=== PATIENT | male | born 1985 | race Hispanic/Latino ===

== ENCOUNTER 2017-03-06 14:25 | Inpatient (IN) | payer BC ==
[2017-03-06 15:08] LABS: BASO # 0.1 K/uL (0.0-0.2); BASO % 0.5 % (0.0-2.0); EOS # 0.2 K/uL (0.0-0.7); EOS % 1.7 % (0.0-4.0); HEMATOCRIT 44.6 % (35.0-51.0); LYMPH # 1.9 K/uL (1.0-4.3); LYMPH % 18.5 % (20.0-40.0); MEAN CORPUSCULAR HGB CONC 33.7 g/dL (33.0-37.0); MEAN PLATELET VOLUME 6.6 fl (7.2-11.7); MONO # 0.7 K/uL (0.0-0.8); MONO % 7.1 % (0.0-10.0); NEUT # 7.3 K/uL (1.8-7.0); NEUT % 72.2 % (50.0-75.0); RED CELL DISTRIBUTION WIDTH 13.4 % (11.5-14.5); WHITE BLOOD COUNT 10.1 K/uL (4.8-10.8)
--- NOTE | 2017-03-06 15:15 | ED PDOC ---
HPI: Chest Pain Time Seen by Provider: 03/06/17 14:43 Chief Complaint (Nursing): Chest Pain Chief Complaint (Provider): chest discomfort, SOB, right leg pain History Per: Patient History/Exam Limitations: no limitations Onset/Duration Of Symptoms: Sudden Onset Current Symptoms Are (Timing): Still Present Severity: Moderate Quality: Tightness Associated Symptoms: Dyspnea, Other (hemoptysis/ leg pain) Exacerbating Factors: Deep Breathing, Exertion Additional Complaint(s): 31yo male states has had right leg pain for about 2 weeks, this morning developed right lower chest discomfort associated with resting dyspnea and several episodes of mild hemoptysis. Denies syncope, fever, orthopnea or left leg pain. 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 He denies recent surgery, immobilization, long plane/car rides or smoking history. Denies family history of blood clots. Past Medical History Reviewed: Historical Data, Nursing Documentation, Vital Signs Vital Signs: Last Vital Signs Temp 97.6 F 03/06/17 14:31 Pulse 84 03/06/17 18:42 Resp 18 03/06/17 14:31 BP 127/78 03/06/17 14:31 Pulse Ox 98 03/06/17 18:42 - Medical History PMH: No Chronic Diseases - Surgical History Surgical History: No Surg Hx - Family History Family History: States: Other Other Family History: denies fam hx blood clots - Social History Current smoker - smoking cessation education provided: No Drugs: Denies - Home Medications Home Medications: Ambulatory Orders Medication Instructions Recorded No Known Home Med 03/06/17 - Allergies Allergies/Adverse Reactions: Allergies Allergy/AdvReac Type Severity Reaction Status Date / Time No Known Allergies Allergy Verified 03/06/17 14:49 Review of Systems Constitutional: Negative for: Fever, Chills ENT: Negative for: Nose Discharge, Throat Pain, Throat Swelling Cardiovascular: Positive for: Chest Pain. Negative for: Palpitations, Orthopnea , Edema Respiratory: Positive for: Shortness of Breath, Hemoptysis, Pleuritic Pain. Negative for: Wheezing Gastrointestinal: Negative for: Nausea, Vomiting, Abdominal Pain Genitourinary Male: Negative for: Dysuria Musculoskeletal: Positive for: Leg Pain. Negative for: Neck Pain, Shoulder Pain , Back Pain Skin: Negative for: Rash, Lesions, Jaundice Neurological: Negative for: Weakness, Numbness, Headache, Dizziness Psych: Negative for: Anxiety, Depression Physical Exam - Reviewed Nursing Documentation Reviewed: Yes Vital Signs Reviewed: Yes - Physical Exam Appears: Positive for: Well, Non-toxic, No Acute Distress Head Exam: Positive for: ATRAUMATIC, NORMAL INSPECTION, NORMOCEPHALIC Skin: Positive for: Normal Color, Warm, DRY Eye Exam: Positive for: EOMI, Normal appearance, PERRL ENT: Positive for: Normal ENT Inspection Neck: Positive for: Normal, Painless ROM Cardiovascular/Chest: Positive for: Regular Rate, Rhythm Respiratory: Positive for: CNT, Normal Breath Sounds Gastrointestinal/Abdominal: Positive for: Normal Exam, Bowel Sounds, Soft Back: Positive for: Normal Inspection Extremity: Positive for: Normal ROM, Calf Tenderness (Right), Swelling (trace right calf). Negative for: Deformity Neurologic/Psych: Positive for: Alert, Oriented - Laboratory Results Result Diagrams: 03/06/17 15:02 03/06/17 15:02 - ECG ECG: Positive for: Interpreted By Me ECG Rhythm: Positive for: Normal QRS, Nonspecific Changes Rate: 84 O2 Sat by Pulse Oximetry: 98 Pulse Ox Interpretation: Normal - Physician Consult Information Time Consulting Physican Contacted: 17:00 Physician Contacted: [place] Portillo Outcome Of Conversation: icu care - Critical Care Total Time (In Min): 45 Medical Decision Making Medical Decision Making: Workup initiated for r/o thromboembolism given chest discomfort, small hemoptysis, SOB and RLE pain. labs reviewed, Hgb, Plt normal LFTs and chem unremarkable trop neg BNP within normal range Stat CTA and duplex lower ext obtained: Accession No. : [id number] Patient Name / ID : SAY HYLTON / [id number] Exam Date : 03/06/2017 16:19:35 ( Approved ) Study Comment : Sex / Age : M / 31Y Creator : Deandre Womack MD Dictator : Deandre Womack MD Bus Starter : Nipple Machine Operator : Deandre Womack MD Approver2 : Report Date : 03/06/2017 17:04:54 My Comment : This report is currently processing and HAS NOT BEEN OFFICIALLY SIGNED BY THE PHYSICIAN - ESTIMATED TIME OF APPROVAL IS 03/06/2017 17:09. PROCEDURE: CT Chest with contrast (Pulmonary Angiogram) HISTORY: chest pain, SOB, hemoptysis, RLE pain COMPARISON: None available. TECHNIQUE: Axial computed tomography images were obtained of the chest in the pulmonary arterial phase of enhancement. Coronal and sagittal reformatted images were created and reviewed. Intravenous contrast dose: 98 cc of Visipaque 320 contrast material Radiation dose: Total exam DLP = 366.35 mGy-cm. This CT exam was performed using one or more of the following dose reduction techniques: Automated exposure control, adjustment of the mA and/or kV according to patient size, and/or use of iterative reconstruction technique. FINDINGS: PULMONARY ARTERIES: Current study reveals of pulmonary emboli within distal aspect right upper lobe pulmonary artery as well as distal margins of both right and left lower lobe branches and proximal segmental branches. The note that these findings discussed with Dr. Mccarty at approximately 4:50 p.m. with written down and read back verification. The pulmonary trunk measures approximately 2.6 cm. AORTA: Ascending thoracic aorta measures approximately 2.56 cm and descending thoracic aorta measures approximately 2.13 cm. Note made of a filling defect within the SVC which may represent head mixing of unopacified blood. Possibility of clot within the SVC cannot be completely excluded. . LUNGS: There is a vague patchy infiltrate in the right posterior sulcus that could represent pulmonary infarct. Remaining lung johnson are clear. PLEURAL SPACES: No effusion. No evidence of pneumothorax HEART: Heart size is within range of normal. No significant pericardial effusion. . No definitive evidence of right heart strain this time. Minimal LVH. LYMPH NODES: No significant mediastinal or hilar lymphadenopathy BONES, CHEST WALL: Unremarkable. No fracture or destructive lesion OTHER FINDINGS: Unremarkable. IMPRESSION: Findings consistent with bilateral lower lobe and right upper lobe pulmonary emboli. Probable pulmonary infarct right posterior sulcus. Findings discussed with referring emergency room physician as above. Note made of localized area of diminished contrast material within the IVC which could represent a admixed unopacified blood however the possibility of a clot within the SVC not excluded Accession No. : [id number] Patient Name / ID : SAY HYLTON P / [id number] Exam Date : 03/06/2017 15:32:46 ( Approved ) Study Comment : Sex / Age : M / 31Y Creator : Deandre Womack MD Dictator : Deandre Womack MD Bus Starter : Nipple Machine Operator : Deandre Womack MD Approver2 : Report Date : 03/06/2017 16:17:26 My Comment : HISTORY: Right lower extremity pain, swelling w chest pain/SOB COMPARISON: No prior TECHNIQUE: Bilateral common femoral, superficial femoral, popliteal and posterior tibial veins were evaluated. Flow was assessed with color Doppler, compressibility, assessment of phasic flow and augmentation response. . FINDINGS: The current study reveals thrombus within the right mid and distal superficial femoral vein extending inferiorly into the popliteal and posterior tibial veins. The right common femoral vein and proximal superficial femoral vein as well as the deep veins left lower extremity are patent without evidence of DVT. IMPRESSION: DVT within the right mid and distal superficial femoral vein extending inferiorly into the popliteal and posterior tibial veins. These findings were discussed with Dr. Mccarty at approximately 04:13 p.m. with written down and read back verification. Deep veins left lower extremity patent without evidence of DVT. Heparin initiated. Discussed w radiologist Dr Sutherland, RV appears normal, given lack of tachycardia , lack of hypoxia, normal BP and neg BNP, neg troponin, patient is not candidate for acute TPA or interventional therapy and risks outweigh benefits. Will need echo, admit ICU. Discussed w Dr Portillo intensive care approx 5pm, discussed w Lauren Landis DISTRICT BRANCH MANAGER covering Dr Juana Driver as PMD is [facility]. Care transferred. Questions answered and patient updated on all findings. Offered 630pm- re-evaluated, states SOB and chest pain improved, will continue with ICU care given bilateral PEs with clot burden remaining in RLE and pulmonary infarct. Disposition - Clinical Impression Clinical Impression: Bilateral pulmonary embolism, DVT (deep venous thrombosis) - Patient ED Disposition Is Patient to be Admitted: Yes Counseled Patient/Family Regarding: Studies Performed, Diagnosis - Disposition Disposition Time: 16:45 Condition: GUARDED - Pt Status Changed To: Hospital Disposition Of: Inpatient - Admit Certification Admit to Inpatient:: After my assessment, the patient will require hospitalization for at least two midnights. This is because of the severity of symptoms shown, intensity of services needed, and/or the medical risk in this patient being treated as an outpatient. - POA Present On Arrival: None
[2017-03-06 15:19] LABS: PARTIAL THROMBOPLASTIN TIME 28.2 Seconds (25.6-37.1)
[2017-03-06 15:20] LABS: ALB/GLOB RATIO 1.6 (1.0-2.1); ALKALINE PHOSPHATASE 47 U/L (38-126); ALT/SGPT 31 U/L (21-72); AST/SGOT 24 U/L (17-59); BILIRUBIN,TOTAL 1.1 mg/dl (0.2-1.3); BLOOD UREA NITROGEN 6 mg/dl (9-20); CARBON DIOXIDE 25 mmol/L (22-30); CHLORIDE 107 mmol/L (98-107); GFR AFRICAN-AMERICAN > 60; GLUCOSE,RANDOM 95 mg/dL (75-110); POTASSIUM 4.5 MMOL/L (3.6-5.0); SODIUM 142 mmol/l (132-148); TOTAL PROTEIN 6.6 G/DL (6.3-8.2)
[2017-03-06] MEDS ORDERED: Iodixanol 320 MG/ML 100 ML BOTTLE IV ONE (15:34)
[2017-03-06] MEDS ORDERED: Sodium Chloride 0.9% 50 ML IV ONE ×2 (15:35→15:37)
--- NOTE | 2017-03-06 16:19 | US ---
HISTORY: Right lower extremity pain, swelling w chest pain/SOB COMPARISON: No prior TECHNIQUE: Bilateral common femoral, superficial femoral, popliteal and posterior tibial veins were evaluated. Flow was assessed with color Doppler, compressibility, assessment of phasic flow and augmentation response. . FINDINGS: The current study reveals thrombus within the right mid and distal superficial femoral vein extending inferiorly into the popliteal and posterior tibial veins. The right common femoral vein and proximal superficial femoral vein as well as the deep veins left lower extremity are patent without evidence of DVT. IMPRESSION: DVT within the right mid and distal superficial femoral vein extending inferiorly into the popliteal and posterior tibial veins. These findings were discussed with Dr. Mccarty at approximately 04:13 p.m. with written down and read back verification. Deep veins left lower extremity patent without evidence of DVT.
[2017-03-06] MEDS ORDERED: Heparin 25,000units in D5W 25,000 UNITS/250 ML BAG IV SCH ×2 (16:30→16:45)
[2017-03-06] MEDS ORDERED: Heparin25000 units/250ml 1/2NS 25,000 UNITS/250 ML BAG IV ONE (16:39)
--- NOTE | 2017-03-06 17:06 | CT ---
PROCEDURE: CT Chest with contrast (Pulmonary Angiogram) HISTORY: chest pain, SOB, hemoptysis, RLE pain COMPARISON: None available. TECHNIQUE: Axial computed tomography images were obtained of the chest in the pulmonary arterial phase of enhancement. Coronal and sagittal reformatted images were created and reviewed. Intravenous contrast dose: 98 cc of Visipaque 320 contrast material Radiation dose: Total exam DLP = 366.35 mGy-cm. This CT exam was performed using one or more of the following dose reduction techniques: Automated exposure control, adjustment of the mA and/or kV according to patient size, and/or use of iterative reconstruction technique. FINDINGS: PULMONARY ARTERIES: Current study reveals of pulmonary emboli within distal aspect right upper lobe pulmonary artery as well as distal margins of both right and left lower lobe branches and proximal segmental branches. The note that these findings discussed with Dr. Mccarty at approximately 4:50 p.m. with written down and read back verification. The pulmonary trunk measures approximately 2.6 cm. AORTA: Ascending thoracic aorta measures approximately 2.56 cm and descending thoracic aorta measures approximately 2.13 cm. Note made of a filling defect within the SVC which may represent head mixing of unopacified blood. Possibility of clot within the SVC cannot be completely excluded. . LUNGS: There is a vague patchy infiltrate in the right posterior sulcus that could represent pulmonary infarct. Remaining lung johnson are clear. PLEURAL SPACES: No effusion. No evidence of pneumothorax HEART: Heart size is within range of normal. No significant pericardial effusion. . No definitive evidence of right heart strain this time. Minimal LVH. LYMPH NODES: No significant mediastinal or hilar lymphadenopathy BONES, CHEST WALL: Unremarkable. No fracture or destructive lesion OTHER FINDINGS: Unremarkable. IMPRESSION: Findings consistent with bilateral lower lobe and right upper lobe pulmonary emboli. Probable pulmonary infarct right posterior sulcus. Findings discussed with referring emergency room physician as above. Note made of localized area of diminished contrast material within the IVC which could represent a admixed unopacified blood however the possibility of a clot within the SVC not excluded
[2017-03-06] MEDS: Heparin 25,000units in D5W 25,000 UNITS/250 ML BAG IV SCH (17:34)
--- NOTE | 2017-03-06 19:57 | CP.CCUPN ---
CCU Subjective - Physician Review Subjective (Free Text): Consultation for admission to ICU for Acute/SubAcute PTE and DVT: Events discussed with ER MD: 31M with no significant PMH , c/o RLE pain x 2 weeks, possible blood clot suspected but never had evaluation performed. Today, developed acute onset at rest with symptoms of chest tightness, SOB and multiple episodes of hemoptysis. He denies any palpitations, dizziness, diaphoresis, radiation of pain, N/V, abdominal discomfort, fevers, chills, cough , no recent URI symptoms, or illness. He denies any recent sedentary activities nor prolonged immobilization. Initial VS= 97.6F, 127/78. 73, 18, 98 % on RA. ROS: As above, no other pertinent negs or positives on 10+ system review. Other PMSFH: non-smoker, social ETOH use. All recent nursing and physician documentation reviewed and no new information noted relevant to current problems. MAJOR IMPRESSIONS: 1. Acute Resp insufficiency 2 Acute / Subacute PTE 2. RLE DVT (unprovoked) PLAN: 1. CT Chest preliminary report reviewed showing bilateral pulm embolus with possible wedge infarct along RLL. Other segmental branches involve RUL, RLL and LLL. IV Heparin bolus and infusion started in the ER. 2. Initial Trop is negative. ECHO pending. 3. So far, no indication for acute thrombolytic therapy or clot extraction. 4. Would investigate for occult CA, hypercoag state. 5. RLE US findings suggestive of somewhat extensive clot along mid SFV to Pop and Post Tib area. Consider Vascular Surgery eval. CCU Objective - Vital Signs / Intake & Output Vital Signs (Last 4 hours): Vital Signs Pulse Pulse Ox 03/06/17 18:59 84 98 - Physical Exam Head: Positive for: Normocephalic Pupils: Positive for: PERRL Extroacular Muscles: Positive for: EOMI Mouth: Positive for: Moist Mucous Membranes Neck: Negative for: JVD, Lymphadenopathy Respiratory/Chest: Positive for: Clear to Auscultation. Negative for: Accessory Muscle Use, Wheezes, Rhonchi Cardiovascular: Positive for: Regular Rate and Rhythm. Negative for: Murmurs, Rub Abdomen: Negative for: Tenderness, Distention, Normal Bowel Sounds Lower Extremity: Positive for: CALF TENDERNESS (RLE), NORMAL PULSES. Negative for: Cyanosis Neurological: Positive for: GCS=15, CN II-XII Intact, Motor Func Grossly Intact Skin: Positive for: Warm. Negative for: Rashes Psychiatric: Positive for: Alert, Oriented x 3 - Medications Active Medications: Active Medications Generic Name Dose Route Start Last Admin Trade Name Freq PRN Reason Stop Dose Admin Heparin Sodium/Dextrose 25,000 units in 250 mls @ 14 mls/hr 03/06/17 17:15 17:34 Heparin 25,000 Units/250ml In D5w IV 14 mls/hr .[id number] YANIRA Administration Protocol Review of Systems - Review of Systems All systems: reviewed and no additional remarkable complaints except (as above)
[2017-03-06 20:14] LABS: RBC URINE 2 /hpf (0-3); URINE BILIRUBIN NEGATIVE (NEGATIVE); URINE BLOOD NEGATIVE (NEGATIVE); URINE COLOR YELLOW (YELLOW); URINE GLUCOSE (UA) NEG (Normal); URINE KETONE TRACE mg/dL (NEGATIVE); URINE LEUKOCYTE ESTERASE NEG Leu/uL (Negative); URINE PROTEIN NEGATIVE (NEGATIVE); URINE UROBILINOGEN 0.2-1.0 mg/dL (0.2-1.0); WBC URINE < 1 /hpf (0-5)
[2017-03-07 06:00] LABS: MEAN CELL VOLUME 94.9 fl (80.0-94.0); MEAN CORPUSCULAR HEMOGLOBIN 32.2 pg (27.0-31.0); RED CELL DISTRIBUTION WIDTH 13.3 % (11.5-14.5); WHITE BLOOD COUNT 9.4 K/uL (4.8-10.8)
[2017-03-07 06:11] LABS: PARTIAL THROMBOPLASTIN TIME 54.4 Seconds (25.6-37.1)
[2017-03-07 06:35] LABS: BLOOD UREA NITROGEN 8 mg/dl (9-20); CALCIUM 9.3 mg/dL (8.4-10.2); CARBON DIOXIDE 22 mmol/L (22-30); CHLORIDE 103 mmol/L (98-107); GFR AFRICAN-AMERICAN > 60; GLUCOSE,RANDOM 97 mg/dL (75-110); POTASSIUM 3.7 MMOL/L (3.6-5.0); SODIUM 138 mmol/l (132-148)
--- NOTE | 2017-03-07 07:15 | CARD ---
APPROVED REPORT EKG Measurement Heart [id number] <Conclusion> Normal sinus rhythm with sinus arrhythmia Normal ECG
--- NOTE | 2017-03-07 08:02 | CP.PCM.HP ---
History of Present Illness - History of Present Illness History of Present Illness: pt admitted for b/l pe and rle dvt. at presentw/o dyspnea/pain. no f/c, n/v/d. bw noted. on heparin gtt in icu. 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 us but did not denies truama, surgery, travel, smoking Present on Admission - Present on Admission Any Indicators Present on Admission: No Review of Systems - Respiratory Respiratory: As Per HPI, Dyspnea on Exertion - Musculoskeletal Musculoskeletal: As Per HPI, Myalgias Past Patient History - Past Medical History & Family History Past Medical History?: Yes - Past Social History Smoking Status: Current Some Days Smoker - CARDIAC Hx Cardiac Disorders: No - PULMONARY Hx Respiratory Disorders: No - NEUROLOGICAL Hx Neurological Disorder: No - HEENT Hx HEENT Problems: No - RENAL Hx Chronic Kidney Disease: No - ENDOCRINE/METABOLIC Hx Endocrine Disorders: No - HEMATOLOGICAL/ONCOLOGICAL Hx Blood Disorders: No - INTEGUMENTARY Hx Dermatological Problems: No - MUSCULOSKELETAL/RHEUMATOLOGICAL Hx Falls: No - GENITOURINARY/GYNECOLOGICAL Hx Genitourinary Disorders: No - PSYCHIATRIC Hx Substance Use: No (DENIES) - SURGICAL HISTORY Hx Surgeries: No Other/Comment: UMBILICAL HERNIA REPAIR - ANESTHESIA Hx Anesthesia: Yes Hx Anesthesia Reactions: No Meds Allergies/Adverse Reactions: Allergies Allergy/AdvReac Type Severity Reaction Status Date / Time No Known Allergies Allergy Verified 03/06/17 14:49 Physical Exam - Constitutional Appears: Well, Non-toxic, No Acute Distress - Head Exam Head Exam: ATRAUMATIC, NORMAL INSPECTION, NORMOCEPHALIC - Eye Exam Eye Exam: EOMI, Normal appearance, PERRL Pupil Exam: NORMAL ACCOMODATION, PERRL - ENT Exam ENT Exam: Mucous Membranes Moist, Normal Exam - Neck Exam Neck exam: Positive for: Normal Inspection - Respiratory Exam Respiratory Exam: Clear to Auscultation Bilateral, NORMAL BREATHING PATTERN - Cardiovascular Exam Cardiovascular Exam: REGULAR RHYTHM, RRR, +S1, +S2 - GI/Abdominal Exam GI & Abdominal Exam: Normal Bowel Sounds, Soft. absent: Tenderness - Extremities Exam Extremities exam: Positive for: full ROM, normal capillary refill, normal inspection, pedal pulses present - Back Exam Back exam: NORMAL INSPECTION - Neurological Exam Neurological exam: Alert, CN II-XII Intact, Normal Gait, Oriented x3, Reflexes Normal - Psychiatric Exam Psychiatric exam: Normal Affect, Normal Mood - Skin Skin Exam: Dry, Intact, Normal Color, Warm Results - Vital Signs Recent Vital Signs: Last Vital Signs Temp 98.7 F 03/07/17 04:00 Pulse 59 L 03/07/17 06:00 Resp 21 03/07/17 06:00 BP 139/83 03/07/17 06:00 Pulse Ox 97 03/07/17 06:00 - Labs Result Diagrams: 03/07/17 04:20 03/07/17 04:20 Labs: Laboratory Results - last 24 hr 03/06/17 03/06/17 03/06/17 20:00 20:00 21:30 WBC RBC Hgb Hct MCV MCH MCHC RDW Plt Count PT INR APTT 90.2 H D Sodium Potassium Chloride Carbon Dioxide Anion Gap BUN Creatinine Est GFR ( Amer) Est GFR (Non-Af Amer) Random Glucose Calcium Urine Color Yellow Urine Clarity Clear Urine pH 6.0 Ur Specific Prospect 1.046 H Urine Protein Negative Urine Glucose (UA) Neg Urine Ketones Trace Urine Blood Negative Urine Nitrate Negative Urine Bilirubin Negative Urine Urobilinogen 0.2-1.0 Ur Leukocyte Esterase Neg Urine RBC (Auto) 2 Urine Microscopic WBC < 1 Ur Squamous Epith Cells < 1 Urine Opiates Screen Negative Urine Methadone Screen Negative Ur Barbiturates Screen Negative Ur Phencyclidine Scrn Negative Ur Amphetamines Screen Negative U Benzodiazepines Scrn Negative U Oth Cocaine Metabols Negative U Cannabinoids Screen Positive H 03/07/17 03/07/17 03/07/17 04:20 04:20 04:20 WBC 9.4 RBC 4.95 Hgb 16.0 Hct 47.0 MCV 94.9 H MCH 32.2 H MCHC 34.0 RDW 13.3 Plt Count 223 PT 11.1 INR 1.1 APTT 54.4 H D Sodium 138 Potassium 3.7 Chloride 103 Carbon Dioxide 22 Anion Gap 16 BUN 8 L Creatinine 0.7 L Est GFR ( Amer) > 60 Est GFR (Non-Af Amer) > 60 Random Glucose 97 Calcium 9.3 Urine Color Urine Clarity Urine pH Ur Specific Prospect Urine Protein Urine Glucose (UA) Urine Ketones Urine Blood Urine Nitrate Urine Bilirubin Urine Urobilinogen Ur Leukocyte Esterase Urine RBC (Auto) Urine Microscopic WBC Ur Squamous Epith Cells Urine Opiates Screen Urine Methadone Screen Ur Barbiturates Screen Ur Phencyclidine Scrn Ur Amphetamines Screen U Benzodiazepines Scrn U Oth Cocaine Metabols U Cannabinoids Screen Assessment & Plan (1) Bilateral pulmonary embolism Assessment and Plan: heparin gtt pulm/hematology icu admission Status: Acute (2) DVT (deep venous thrombosis) Assessment and Plan: hematology Status: Acute Decision To Admit - Pt Status Changed To: Hospital Disposition Of: Inpatient - Admit Certification Admit to Inpatient:: After my assessment, the patient will require hospitalization for at least two midnights. This is because of the severity of symptoms shown, intensity of services needed, and/or the medical risk in this patient being treated as an outpatient. - . Bed Request Type: Intensive Care Admitting Physician: Moi Driver
--- NOTE | 2017-03-07 09:51 | CP.PCM.CON ---
History of Present Illness - History of Present Illness History of Present Illness: 31 year old male with no past medical history admitted with right lower extremity DVT and bilateral PE. The patient reports to cramping of his right leg intermittently for about 2 week time. 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 He then began to experience episodes of hemoptysis and shortness of breath which prompted him to come to the ER. A Venous duplex revealed distol femoral, popliteal, and posterior tibial thrombus. A CT angio of the chest revealed B/L pulmonary emboli with probable pulmonary infarct. The patient is currently on a heparin drip and reports to feeling better. He denies immobility, trauma to his extremities, and hormonal supplementation. Past medical history: None Past surgical history: None Family history: Grandmother had a blood clot after her gallbladder was removed Social history: Chews tobacco, social alcohol, denies illicit drug use. Allergies: NKA Review of systems: All remaining review of systems including HEENT, cardiovascular, respiratory, gastrointestinal, genitourinary, musculoskeletal, dermatologic, neurologic, and psychiatric are negative unless mentioned in the HPI. Past Patient History - Past Medical History & Family History Past Medical History?: Yes - Past Social History Smoking Status: Current Some Days Smoker - CARDIAC Hx Cardiac Disorders: No - PULMONARY Hx Respiratory Disorders: No - NEUROLOGICAL Hx Neurological Disorder: No - HEENT Hx HEENT Problems: No - RENAL Hx Chronic Kidney Disease: No - ENDOCRINE/METABOLIC Hx Endocrine Disorders: No - HEMATOLOGICAL/ONCOLOGICAL Hx Blood Disorders: No - INTEGUMENTARY Hx Dermatological Problems: No - MUSCULOSKELETAL/RHEUMATOLOGICAL Hx Falls: No - GENITOURINARY/GYNECOLOGICAL Hx Genitourinary Disorders: No - PSYCHIATRIC Hx Substance Use: No (DENIES) - SURGICAL HISTORY Hx Surgeries: No Other/Comment: UMBILICAL HERNIA REPAIR - ANESTHESIA Hx Anesthesia: Yes Hx Anesthesia Reactions: No Meds Allergies/Adverse Reactions: Allergies Allergy/AdvReac Type Severity Reaction Status Date / Time No Known Allergies Allergy Verified 03/06/17 14:49 - Medications Medications: Current Medications Heparin Sodium/Dextrose (Heparin 25,000 Units/250ml In D5w) 25,000 units in 250 mls @ 14 mls/hr IV .[id number] YANIRA PRN Reason: Protocol Last Titration: 03/06/17 22:00 Dose: 12.5 mls/hr Physical Exam - Head Exam Head Exam: ATRAUMATIC - Eye Exam Eye Exam: Normal appearance - ENT Exam ENT Exam: Mucous Membranes Dry - Respiratory Exam Respiratory Exam: NORMAL BREATHING PATTERN - Cardiovascular Exam Cardiovascular Exam: +S1, +S2 - GI/Abdominal Exam GI & Abdominal Exam: Normal Bowel Sounds - Extremities Exam Extremities exam: Positive for: pedal edema - Neurological Exam Neurological exam: Oriented x3 - Psychiatric Exam Psychiatric exam: Normal Affect, Normal Mood - Skin Skin Exam: Warm Results - Vital Signs Recent Vital Signs: Last Vital Signs Temp 98.4 F 03/07/17 08:00 Pulse 58 L 03/07/17 08:00 Resp 23 03/07/17 08:00 BP 130/73 03/07/17 08:00 Pulse Ox 100 03/07/17 08:00 - Labs Result Diagrams: 03/07/17 04:20 03/07/17 04:20 Labs: Laboratory Results - last 24 hr 03/06/17 03/06/17 03/06/17 20:00 20:00 21:30 WBC RBC Hgb Hct MCV MCH MCHC RDW Plt Count PT INR APTT 90.2 H D Sodium Potassium Chloride Carbon Dioxide Anion Gap BUN Creatinine Est GFR ( Amer) Est GFR (Non-Af Amer) Random Glucose Calcium Urine Color Yellow Urine Clarity Clear Urine pH 6.0 Ur Specific Randall 1.046 H Urine Protein Negative Urine Glucose (UA) Neg Urine Ketones Trace Urine Blood Negative Urine Nitrate Negative Urine Bilirubin Negative Urine Urobilinogen 0.2-1.0 Ur Leukocyte Esterase Neg Urine RBC (Auto) 2 Urine Microscopic WBC < 1 Ur Squamous Epith Cells < 1 Urine Opiates Screen Negative Urine Methadone Screen Negative Ur Barbiturates Screen Negative Ur Phencyclidine Scrn Negative Ur Amphetamines Screen Negative U Benzodiazepines Scrn Negative U Oth Cocaine Metabols Negative U Cannabinoids Screen Positive H 03/07/17 03/07/17 03/07/17 04:20 04:20 04:20 WBC 9.4 RBC 4.95 Hgb 16.0 Hct 47.0 MCV 94.9 H MCH 32.2 H MCHC 34.0 RDW 13.3 Plt Count 223 PT 11.1 INR 1.1 APTT 54.4 H D Sodium 138 Potassium 3.7 Chloride 103 Carbon Dioxide 22 Anion Gap 16 BUN 8 L Creatinine 0.7 L Est GFR ( Amer) > 60 Est GFR (Non-Af Amer) > 60 Random Glucose 97 Calcium 9.3 Urine Color Urine Clarity Urine pH Ur Specific Randall Urine Protein Urine Glucose (UA) Urine Ketones Urine Blood Urine Nitrate Urine Bilirubin Urine Urobilinogen Ur Leukocyte Esterase Urine RBC (Auto) Urine Microscopic WBC Ur Squamous Epith Cells Urine Opiates Screen Urine Methadone Screen Ur Barbiturates Screen Ur Phencyclidine Scrn Ur Amphetamines Screen U Benzodiazepines Scrn U Oth Cocaine Metabols U Cannabinoids Screen Assessment & Plan (1) Bilateral pulmonary embolism Assessment and Plan: unprovoked RLE DVT agree with therapeutic anticoagulation will perform inherited thrombophilia work up discussed different anticoagulants, side effect profile, monitoring, and antidotes available pt agreeable to outpatient Pradaxa 150mg PO twice daily. Status: Acute (2) Coagulopathy Assessment and Plan: secondary to anticoagulation Thank you for this interesting consult. Status: Acute
[2017-03-07] MEDS: Heparin 25,000units in D5W 25,000 UNITS/250 ML BAG IV SCH (13:23)
[2017-03-07] MEDS ORDERED: Heparin 25,000units in D5W 25,000 UNITS/250 ML BAG IV SCH (20:45)
--- NOTE | 2017-03-08 00:12 | CON ---
DATE: HISTORY OF PRESENT ILLNESS: Mr. Nicole is a 31-year-old male who is referred for pulmonary evaluation by Christopher Landis. He was admitted with right lower extremity pain, which started suddenly on waken up on the morning of admission. He also had cough productive of blood-tinged sputum on the day of admission he came to the emergency room where he was found to have bilateral pulmonary emboli with pulmonary infarct. He also had right DVT. PAST MEDICAL HISTORY: He has unremarkable past medical history. FAMILY HISTORY: Unremarkable. 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 REVIEW OF SYSTEMS: Essentially unremarkable. PHYSICAL EXAMINATION: GENERAL: The patient is alert and oriented, appears to be comfortable at present except for right leg discomfort. VITAL SIGNS: Blood pressure 130/73, pulse of 58, respiratory rate of 23 and O2 sat 100% on room air. SKIN: Fair turgor. HEENT: Pupils equal and reactive to light and accommodation. NECK: JVP flat. LUNGS: Clear. HEART: Regular. No murmurs, rubs or gallops. ABDOMEN: Soft and nontender. No organomegaly. EXTREMITIES: There is a mild tenderness of right lower extremity, but no real swelling. CENTRAL NERVOUS SYSTEM: Grossly intact. GENITAL AND RECTAL: Deferred. LABORATORY DATA: PT 11.1, INR 1.1 and PTT 54.2. Sodium 138, potassium 3.7, BUN 8, creatinine 0.7, calcium 9.3, AST 24 and ALT 31. WBC 9.4, hemoglobin 16.0 and platelet count 223,000. CT scan of the chest is remarkable for bilateral lower and right upper lobe pulmonary emboli, pulmonary infarct right posterior sulcus, also possibility of clot within the SVC. EKG normal sinus rhythm with sinus arrhythmia. Ultrasound of lower extremity is remarkable for DVT with right mid distal superficial femoral vein extended inferiorly into the popliteal and posterior tibial vein. IMPRESSION: Acute deep venous thrombosis of right lower extremity and acute bilateral pulmonary emboli with pulmonary infarct. PLAN: Rule out coagulopathy in a patient who has no the risk factors for DVT or pulmonary emboli. Agree with anticoagulation at present and will probably switch to oral anticoagulation Xarelto, Pradaxa and Eliquis once PTT is therapeutic and discharge the patient to home with anticoagulation for the next 3-6 months. The patient is visiting from [place] and will follow up with his primary care doctor in [place], [place]. We will continue to follow while the patient is in hospital. Case discussed at length with the patient, hematology consultation is necessary. Mango Omer MD
--- NOTE | 2017-03-08 00:14 | PN ---
DATE: 03/07/2017 CRITICAL PROGRESS NOTE The patient is in the ICU, bed 430. Time spent 35 minutes. SUBJECTIVE: The patient is seen and evaluated at the bedside. Events since admission reviewed. Case was discussed with in a.m. rounds. 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 Admitted with pain, right lower extremity, and shortness of breath, noted to have DVT of right lower extremity associated with bilateral pulmonary embolism. Currently on IV heparin. Overnight afebrile, normotensive, saturating over 94%. This morning alert awake, follows commands appropriate. Has no new complaints. Denies shortness of breath, chest pain, palpitations. Still soreness on the right lower extremity. No recent provoking events. FAMILY HISTORY: Positive for grandmother with lymphoma. PHYSICAL EXAMINATION VITAL SIGNS: Temperature 98.7, heart rate 78, blood pressure 114/68, mean arterial pressure 83, respiratory rate 21, oxygen saturation 94% on room air. Intake 734, output 700, positive balance 34, weight 160 pounds. HEAD, EYES, EARS, NOSE, AND THROAT: Pupils are reactive. Conjunctivae pink. Sclerae white. NECK: Supple. Trachea is central. CHEST: Bilateral breath sounds. Clear to auscultation. HEART: Rhythm regular. S1 and S2 normal intensity. No S3, S4, or gallop. No audible murmur. ABDOMEN: Bowel sounds present. Soft. Liver and spleen not palpable. GENITOURINARY: Bladder not distended. EXTREMITIES: No palpable cord. DP palpable, symmetric. NEUROLOGIC: Nonfocal. CURRENT MEDICATIONS: Heparin drip titrated per protocol, maintain PTT *1.5 to 2 times the control. LABORATORY DATA: WBC 9.4, hemoglobin 16, hematocrit 47, platelet count 223. PT 11.1, INR 1.1, PTT 54.4. SMA-7, sodium 138, potassium 3.7, chloride 103, CO2 of 22, blood urea nitrogen 8, creatinine 0.7, random glucose 97, calcium 9.3. Urinalysis negative. Toxicology positive for cannabinoids. IMPRESSION: 1. Bilateral pulmonary emboli. 2. Deep venous thrombosis, right lower extremity. 3. Family history positive for lymphoma (grandmother). Evaluate for occult malignancy. Current smoker. No symptoms of nicotine withdrawal. Continue heparin. Follow hematology recommendations. Hypercoagulable workup ordered. Arcadio Gray MD [facility] # [id number] [facility]
--- NOTE | 2017-03-08 07:11 | CP.PCM.PN ---
Subjective - Date & Time of Evaluation Date of Evaluation: 03/08/17 Time of Evaluation: 07:11 - Subjective Subjective: pt doing well, no distress, still w/ r sided flank pain and r calf cramp. no f/ c, n/v/d no dyspnea. spo2 97-99% on ra. nsr 60s-70s consult notes appriciated. Objective - Vital Signs/Intake and Output Vital Signs (last 24 hours): Temp Pulse Resp BP Pulse Ox 98.5 F 60 18 119/76 97 03/08/17 00:00 03/08/17 06:00 03/08/17 06:00 03/08/17 06:00 03/08/17 06:00 Intake and Output: 03/08/17 03/08/17 06:59 18:59 Intake Total 222 Output Total 350 Balance -128 - Medications Medications: Current Medications Heparin Sodium/Dextrose (Heparin 25,000 Units/250ml In D5w) 25,000 units in 250 mls @ 12 mls/hr IV .[id number] YANIRA PRN Reason: Protocol Last Admin: 03/07/17 21:02 Dose: 12 mls/hr - Labs Labs: 03/07/17 04:20 03/07/17 04:20 PT 11.1 Seconds (9.8-13.1) 03/07/17 04:20 INR 1.1 (0.9-1.2) 03/07/17 04:20 APTT 53.7 Seconds (25.6-37.1) H D 03/08/17 02:52 - Constitutional Appears: Well, Non-toxic, No Acute Distress - Head Exam Head Exam: ATRAUMATIC, NORMAL INSPECTION, NORMOCEPHALIC - Eye Exam Eye Exam: EOMI, Normal appearance, PERRL Pupil Exam: NORMAL ACCOMODATION, PERRL - ENT Exam ENT Exam: Mucous Membranes Moist, Normal Exam - Neck Exam Neck Exam: Full ROM, Normal Inspection. absent: Lymphadenopathy - Respiratory Exam Respiratory Exam: Clear to Ausculation Bilateral, NORMAL BREATHING PATTERN - Cardiovascular Exam Cardiovascular Exam: REGULAR RHYTHM, RRR, +S1, +S2. absent: Murmur - GI/Abdominal Exam GI & Abdominal Exam: Soft, Normal Bowel Sounds. absent: Tenderness - Extremities Exam Extremities Exam: Full ROM, Normal Capillary Refill, Normal Inspection. absent : Joint Swelling, Pedal Edema Additional comments: r calf tightness - Back Exam Back Exam: NORMAL INSPECTION - Neurological Exam Neurological Exam: Alert, Awake, CN II-XII Intact, Normal Gait, Oriented x3 - Psychiatric Exam Psychiatric exam: Normal Affect, Normal Mood - Skin Skin Exam: Dry, Intact, Normal Color, Warm Assessment and Plan (1) Bilateral pulmonary embolism Status: Acute (2) DVT (deep venous thrombosis) Status: Acute - Assessment and Plan (Free Text) Assessment: (1) Bilateral pulmonary embolism Assessment and Plan: heparin gtt pulm/hematology icu admission downgrade to [facility] today, pradaxa Status: Acute (2) DVT (deep venous thrombosis) Assessment and Plan: hematology Status: Acute
[2017-03-08 09:33] LABS: HEMATOCRIT 45.6 % (35.0-51.0); MEAN CELL VOLUME 93.8 fl (80.0-94.0); MEAN CORPUSCULAR HGB CONC 34.1 g/dL (33.0-37.0); RED CELL DISTRIBUTION WIDTH 13.3 % (11.5-14.5); WHITE BLOOD COUNT 9.8 K/uL (4.8-10.8)
[2017-03-08 09:50] LABS: BLOOD UREA NITROGEN 4 mg/dl (9-20); CALCIUM 9.2 mg/dL (8.4-10.2); CARBON DIOXIDE 26 mmol/L (22-30); CHLORIDE 103 mmol/L (98-107); GFR AFRICAN-AMERICAN > 60; GLUCOSE,RANDOM 106 mg/dL (75-110); POTASSIUM 4.1 MMOL/L (3.6-5.0); SODIUM 138 mmol/l (132-148)
--- NOTE | 2017-03-08 10:11 | CP.PCM.PN ---
Subjective - Date & Time of Evaluation Date of Evaluation: 03/08/17 Time of Evaluation: 10:12 - Subjective Subjective: SOB AND HEMOPTYSIS IMPROVED BUT HAS R SIDED PLEURITIC CHEST PAINS ON DEEP INSPIRATION Objective - Vital Signs/Intake and Output Vital Signs (last 24 hours): Temp Pulse Resp BP Pulse Ox 98.4 F 69 24 124/65 97 03/08/17 08:00 03/08/17 08:00 03/08/17 08:00 03/08/17 08:00 03/08/17 08:00 Intake and Output: 03/08/17 03/08/17 06:59 18:59 Intake Total 222 120 Output Total 350 300 Balance -128 -180 - Medications Medications: Current Medications Heparin Sodium/Dextrose (Heparin 25,000 Units/250ml In D5w) 25,000 units in 250 mls @ 12 mls/hr IV .[id number] YANIRA PRN Reason: Protocol Last Admin: 03/07/17 21:02 Dose: 12 mls/hr - Labs Labs: 03/08/17 09:10 03/08/17 09:10 PT 11.1 Seconds (9.8-13.1) 03/07/17 04:20 INR 1.1 (0.9-1.2) 03/07/17 04:20 APTT 46.3 Seconds (25.6-37.1) H D 03/08/17 09:10 - Constitutional Appears: Well - Head Exam Head Exam: ATRAUMATIC, NORMAL INSPECTION, NORMOCEPHALIC - Eye Exam Eye Exam: EOMI, Normal appearance, PERRL Pupil Exam: NORMAL ACCOMODATION, PERRL - ENT Exam ENT Exam: Mucous Membranes Moist, Normal Exam - Neck Exam Neck Exam: Full ROM, Normal Inspection. absent: Lymphadenopathy - Respiratory Exam Respiratory Exam: Clear to Ausculation Bilateral, NORMAL BREATHING PATTERN - Cardiovascular Exam Cardiovascular Exam: REGULAR RHYTHM, +S1, +S2. absent: Murmur - GI/Abdominal Exam GI & Abdominal Exam: Soft, Normal Bowel Sounds. absent: Tenderness - Rectal Exam Rectal Exam: NORMAL INSPECTION - Extremities Exam Extremities Exam: Full ROM, Normal Capillary Refill, Normal Inspection. absent : Joint Swelling, Pedal Edema - Back Exam Back Exam: NORMAL INSPECTION - Neurological Exam Neurological Exam: Alert, Awake, CN II-XII Intact, Normal Gait, Oriented x3 - Psychiatric Exam Psychiatric exam: Normal Affect, Normal Mood - Skin Skin Exam: Dry, Intact, Normal Color, Warm Assessment and Plan - Assessment and Plan (Free Text) Assessment: BILATERAL PULMONARY EMBOLI R DVT Plan: MAY SWITCH TO PRADAXA ADVISED NOT TO TRAVEL ON AN AIRPLANE X SEVERAL MONTHS NO FURTHER PULMONARY INTERVENTION FOR NOW WILL SIGN OFF CASE AND SEE AGAIN AT YOUR REQUEST CASE DISCUSSED WITH TOD BARRAZA
--- NOTE | 2017-03-08 11:15 | CARD ---
APPROVED REPORT EKG Measurement Heart [id number] IN [id number] [id number] <Conclusion> Normal sinus rhythm Normal ECG
--- NOTE | 2017-03-08 13:46 | PN ---
DATE: 03/08/2017 The patient is in the ICU, bed 430. Time spent 35 minutes. SUBJECTIVE: The patient is seen and evaluated at the bedside. Events since admission reviewed. Overnight on IV heparin as per protocol; remained afebrile, normotensive, telemetry, sinus rhythm. This morning, alert, awake, follows commands appropriate; complaining of pain at the right lateral chest wall, reduced in intensity, rated as 2-3/10. No shortness of breath, palpitation, or abdominal pain. Tolerating p.o. feeds. PHYSICAL EXAMINATION: VITAL SIGNS: Temperature 98.4, heart rate 76 regular, blood pressure 124/65 to 156/101, respiratory rate 18 , saturating 97% on room air. Intake 1192, output 2050, negative balance 858, weight 160 pounds. HEAD, EYES, EARS, NOSE, AND THROAT: Pupils are reactive. Conjunctivae pink. Sclerae white. NECK: Supple. Trachea is central. CHEST: Bilateral breath sounds. Clear to auscultation. HEART: Rhythm regular. S1 and S2 normal intensity. No S3, S4, or gallop. No audible murmur. ABDOMEN: Bowel sounds present. Soft. Liver and spleen not palpable. GENITOURINARY: Bladder not distended. EXTREMITIES: No palpable cord. DP palpable, symmetric. NEUROLOGIC: Nonfocal. CURRENT MEDICATIONS: Tylenol 650 q. 4 p.r.n. for pain; heparin drip. LABORATORY DATA: WBC 9.8, hemoglobin 15.6, hematocrit 45.6, platelet count 234. PT 11.1, INR 1.1, PTT 53.7. SMA-7, sodium 138, potassium 4.1, chloride 103, CO2 of 26, blood urea nitrogen 4, creatinine 0.8, calcium 9.2, random glucose 106. Urinalysis; urine nitrate negative. Bilirubin negative, RBC 2. Microscopic WBC less than 1. Toxicology screen positive for cannabinoids. Microbiology no__ growth reported. Electrocardiogram dated 03/08 shows normal sinus rhythm with sinus arrhythmia. IMPRESSION: Bilateral pulmonary emboli, right deep venous thrombosis. Current smoker with urine positive for cannabinoids. PLAN: Discontinue systemic heparin. Add Pradaxa 150 mg twice daily. Followup hypercoagulable workup. Discussed with primary physician and slasher hand, transfer to telemetry floor. Arcadio Gray MD [facility]
[2017-03-09 04:44] VITALS: O2SAT 97
--- NOTE | 2017-03-09 06:18 | CP.PCM.PN ---
Subjective - Date & Time of Evaluation Date of Evaluation: 03/08/17 Time of Evaluation: 19:00 - Subjective Subjective: Feeling better, less chest pain Objective - Vital Signs/Intake and Output Vital Signs (last 24 hours): Temp Pulse Resp BP Pulse Ox 98.8 F 55 L 19 120/75 97 03/09/17 04:44 03/09/17 04:44 03/09/17 04:44 03/09/17 04:44 03/09/17 04:44 Intake and Output: 03/08/17 03/09/17 18:59 06:59 Intake Total 420 Output Total 600 Balance -180 - Medications Medications: Current Medications Acetaminophen (Tylenol 325mg Tab) 650 mg PO Q4 PRN PRN Reason: Pain, moderate (4-7) Dabigatran (Pradaxa) 150 mg PO BID YANIRA PRN Reason: Protocol Last Admin: 03/08/17 17:09 Dose: 150 mg - Labs Labs: 03/08/17 09:10 03/08/17 09:10 PT 11.1 Seconds (9.8-13.1) 03/07/17 04:20 INR 1.1 (0.9-1.2) 03/07/17 04:20 APTT 46.3 Seconds (25.6-37.1) H D 03/08/17 09:10 - Head Exam Head Exam: ATRAUMATIC - Eye Exam Eye Exam: Normal appearance - ENT Exam ENT Exam: Mucous Membranes Dry - Respiratory Exam Respiratory Exam: NORMAL BREATHING PATTERN - Cardiovascular Exam Cardiovascular Exam: +S1, +S2 - GI/Abdominal Exam GI & Abdominal Exam: Normal Bowel Sounds - Extremities Exam Extremities Exam: Pedal Edema - Neurological Exam Neurological Exam: Oriented x3 - Psychiatric Exam Psychiatric exam: Normal Affect, Normal Mood - Skin Skin Exam: Warm Assessment and Plan (1) Bilateral pulmonary embolism Assessment & Plan: with DVT RLE unprovoked switched to Pradaxa inherited thrombophilia w/u sent Status: Acute (2) Coagulopathy Assessment & Plan: anticoagulation Status: Acute
--- NOTE | 2017-03-09 08:01 | CP.PCM.DIS ---
Provider - Provider Date of Admission: 03/06/17 17:01 Attending physician: Moi Driver MD Time Spent in preparation of Discharge (in minutes): 15 Diagnosis - Discharge Diagnosis (1) Bilateral pulmonary embolism Status: Acute (2) DVT (deep venous thrombosis) Status: Acute Hospital Course - Lab Results Lab Results: Micro Results 03/06/17 21:30 Naris MRSA Culture (Admit) - Final MRSA NOT DETECTED Most Recent Lab Values WBC 9.8 K/uL (4.8-10.8) 03/08/17 09:10 RBC 4.86 Mil/uL (4.40-5.90) 03/08/17 09:10 Hgb 15.6 g/dL (12.0-18.0) 03/08/17 09:10 Hct 45.6 % (35.0-51.0) 03/08/17 09:10 MCV 93.8 fl (80.0-94.0) 03/08/17 09:10 MCH 32.0 pg (27.0-31.0) H 03/08/17 09:10 MCHC 34.1 g/dL (33.0-37.0) 03/08/17 09:10 RDW 13.3 % (11.5-14.5) 03/08/17 09:10 Plt Count 234 K/uL (130-400) 03/08/17 09:10 MPV 6.6 fl (7.2-11.7) L 03/06/17 15:02 Neut % (Auto) 72.2 % (50.0-75.0) 03/06/17 15:02 Lymph % (Auto) 18.5 % (20.0-40.0) L 03/06/17 15:02 [place] % (Auto) 7.1 % (0.0-10.0) 03/06/17 15:02 Eos % (Auto) 1.7 % (0.0-4.0) 03/06/17 15:02 Baso % (Auto) 0.5 % (0.0-2.0) 03/06/17 15:02 Neut # 7.3 K/uL (1.8-7.0) H 03/06/17 15:02 Lymph # 1.9 K/uL (1.0-4.3) 03/06/17 15:02 [place] # 0.7 K/uL (0.0-0.8) 03/06/17 15:02 Eos # 0.2 K/uL (0.0-0.7) 03/06/17 15:02 Baso # 0.1 K/uL (0.0-0.2) 03/06/17 15:02 PT 11.1 Seconds (9.8-13.1) 03/07/17 04:20 INR 1.1 (0.9-1.2) 03/07/17 04:20 APTT 46.3 Seconds (25.6-37.1) H D 03/08/17 09:10 Sodium 138 mmol/l (132-148) 03/08/17 09:10 Potassium 4.1 MMOL/L (3.6-5.0) 03/08/17 09:10 Chloride 103 mmol/L (98-107) 03/08/17 09:10 Carbon Dioxide 26 mmol/L (22-30) 03/08/17 09:10 Anion Gap 13 (10-20) 03/08/17 09:10 BUN 4 mg/dl (9-20) L 03/08/17 09:10 Creatinine 0.8 mg/dL (0.8-1.5) 03/08/17 09:10 Est GFR ( Amer) > 60 03/08/17 09:10 Est GFR (Non-Af Amer) > 60 03/08/17 09:10 Random Glucose 106 mg/dL (75-110) 03/08/17 09:10 Calcium 9.2 mg/dL (8.4-10.2) 03/08/17 09:10 Total Bilirubin 1.1 mg/dl (0.2-1.3) 03/06/17 15:02 AST 24 U/L (17-59) 03/06/17 15:02 ALT 31 U/L (21-72) 03/06/17 15:02 Alkaline Phosphatase 47 U/L (38-126) 03/06/17 15:02 Troponin I < 0.0120 ng/mL (0.00-0.120) 03/06/17 15:02 NT-Pro-B Natriuret Pep 49.1 pg/ml (0-450) 03/06/17 15:02 Total Protein 6.6 G/DL (6.3-8.2) 03/06/17 15:02 Albumin 4.1 g/dL (3.5-5.0) 03/06/17 15:02 Globulin 2.5 gm/dL (2.2-3.9) 03/06/17 15:02 Albumin/Globulin Ratio 1.6 (1.0-2.1) 03/06/17 15:02 Urine Color Yellow (YELLOW) 03/06/17 20:00 Urine Clarity Clear (Clear) 03/06/17 20:00 Urine pH 6.0 (5.0-8.0) 03/06/17 20:00 Ur Specific [place] 1.046 (1.003-1.030) H 03/06/17 20:00 Urine Protein Negative mg/dL (NEGATIVE) 03/06/17 20:00 Urine Glucose (UA) Neg mg/dL (Normal) 03/06/17 20:00 Urine Ketones Trace mg/dL (NEGATIVE) 03/06/17 20:00 Urine Blood Negative (NEGATIVE) 03/06/17 20:00 Urine Nitrate Negative (NEGATIVE) 03/06/17 20:00 Urine Bilirubin Negative (NEGATIVE) 03/06/17 20:00 Urine Urobilinogen 0.2-1.0 mg/dL (0.2-1.0) 03/06/17 20:00 Ur Leukocyte Esterase Neg [place]/uL (Negative) 03/06/17 20:00 Urine RBC (Auto) 2 /hpf (0-3) 03/06/17 20:00 Urine Microscopic WBC < 1 /hpf (0-5) 03/06/17 20:00 Ur Squamous Epith Cells < 1 /hpf (0-5) 03/06/17 20:00 Urine Opiates Screen Negative (NEGATIVE) 03/06/17 20:00 Urine Methadone Screen Negative (NEGATIVE) 03/06/17 20:00 Ur Barbiturates Screen Negative (NEGATIVE) 03/06/17 20:00 Ur Phencyclidine Scrn Negative (NEGATIVE) 03/06/17 20:00 Ur Amphetamines Screen Negative (NEGATIVE) 03/06/17 20:00 U Benzodiazepines Scrn Negative (NEGATIVE) 03/06/17 20:00 U Oth Cocaine Metabols Negative (NEGATIVE) 03/06/17 20:00 U Cannabinoids Screen Positive (NEGATIVE) H 03/06/17 20:00 RPR Nonreactive (NONREACTIVE) 03/07/17 11:10 Discharge Exam - Head Exam Head Exam: ATRAUMATIC, NORMAL INSPECTION, NORMOCEPHALIC - Eye Exam Eye Exam: EOMI, Normal appearance, PERRL Pupil Exam: NORMAL ACCOMODATION, PERRL - Respiratory Exam Respiratory Exam: Clear to PA & Lateral, NORMAL BREATHING PATTERN, UNREMARKABLE - Cardiovascular Exam Cardiovascular Exam: REGULAR RHYTHM, RRR, +S1, +S2 - GI/Abdominal Exam GI & Abdominal Exam: Normal Bowel Sounds, Soft, Unremarkable - Extremities Exam Extremities exam: full ROM, normal capillary refill, normal inspection, pedal pulses present - Back Exam Back exam: FULL ROM - Neurological Exam Neurological exam: Alert, CN II-XII Intact, Normal Gait, Oriented x3, Reflexes Normal - Psychiatric Exam Psychiatric exam: Normal Affect, Normal Mood - Skin Skin Exam: Dry, Intact, Normal Color, Warm Discharge Plan - Discharge Medications Prescriptions: Dabigatran [Pradaxa] 150 mg PO BID #60 cap - Follow Up Plan Condition: GUARDED Disposition: HOME/ ROUTINE Additional Instructions: cleared by pulm/hematology for dc today on pradaxapt offers no complaints. no cp, dyspnea. final dx- b/l pe rle dvt f/u rmg nad specialists outpt, rted prn, meds per med rec
[2017-03-09 08:21] VITALS: BP 122/68; PULSE 60; RESP 18; TEMP 98.3
[2017-03-11 06:28] LABS: B2 GLYCOPROTEIN I AB(IGA) <9 SAU (<=20); B2 GLYCOPROTEIN I AB(IGG) <9 SGU (<=20); B2 GLYCOPROTEIN I AB(IGM) <9 SMU (<=20)
[2017-03-11 21:03] LABS: PHOSPHATIDYLSERINE AB IGA <20 U/mL (<20); PHOSPHATIDYLSERINE AB IGM <25 U/mL (<25)
[2017-03-14 03:53] LABS: CARDIOLIPIN AB (IGA) <11 APL (<=11)
== END 2017-03-09 11:21 | disposition home or self-care (01) | DRG 176 ==
LOC: H.ER 14:25 → H.ERHOLD 17:01 → H.ICU/CCU 20:50 → H.TEL 03-08 20:46
PROVIDERS: ADMIT Family Medicine; ATTEND Family Medicine
DX: I26.99 Other pulmonary embolism without acute cor pulmonale (principal); I82.411 Acute embolism and thrombosis of right femoral vein; I82.431 Acute embolism and thrombosis of right popliteal vein; I82.441 Acute embolism and thrombosis of right tibial vein; F17.200 Nicotine dependence, unspecified, uncomplicated; T45.515A Adverse effect of anticoagulants, initial encounter; R79.1 Abnormal coagulation profile